=== PATIENT | female | born 1980 | race Caucasian/White ===

== ENCOUNTER 2020-02-26 18:39 | Emergency (ER) | payer SELFPAY ==
[~2020-02-26] VITALS: Ht 157.5 cm; Wt 63.5 kg
[2020-02-26 19:51] LABS: BASOPHILS # (AUTO) 0.1 (0.0-0.1); BASOPHILS % 0.4 % (0.0-1.0); EOSINOPHILS % 0.1 % (0.0-6.0); HEMATOCRIT 32.1 % (34.2-44.1); HEMOGLOBIN 10.4 g/dL (12.0-16.0); LYMPHOCYTES # (AUTO) 2.3 (1.0-3.2); LYMPHOCYTES % 6.9 % (18.0-39.1); MEAN CORPUSCULAR HEMOGLOBIN 26.4 pg (28-32); MEAN CORPUSCULAR HGB CONC 32.4 g/dL (31-35); MEAN CORPUSCULAR VOLUME 81.5 fL (81-99); MONOCYTES % 3.1 % (4.4-11.3); NEUTROPHILS # (AUTO) 28.8 (2.1-6.9); NEUTROPHILS % 86.2 % (38.7-80.0); PLATELET COUNT 416 x10e3/uL (140-360); RED BLOOD COUNT 3.94 x10e6/uL (3.6-5.1); RED CELL DISTRIBUTION WIDTH 16.7 % (11.7-14.4)
[2020-02-26 20:05] LABS: ALANINE AMINOTRANSFERASE 16 IU/L (0-55); ALBUMIN 1.8 g/dL (3.5-5.0); ALBUMIN/GLOBULIN RATIO 0.3 (0.8-2.0); ALKALINE PHOSPHATASE 207 IU/L (40-150); ANION GAP 15.8 mmol/L (8-16); BLOOD UREA NITROGEN 10 mg/dL (7-26); BUN/CREATININE RATIO 14 (6-25); CALCIUM 8.8 mg/dL (8.4-10.2); CARBON DIOXIDE 28 mmol/L (22-29); CHLORIDE 93 mmol/L (98-107); CREATININE, SERUM 0.74 mg/dL (0.57-1.11); EST GLOMERULAR FILTRATION RATE > 60 ML/MIN (60-); GLUCOSE 165 mg/dL (74-118); SODIUM 134 mmol/L (136-145)
[2020-02-26 20:09] LABS: POTASSIUM 2.8 mmol/L (3.5-5.1)
[2020-02-26] MEDS ORDERED: ONDANSETRON HCL INJ 2MG/ML 2ML 2 MG/ML VIAL ONE (23:10)
[2020-02-26] MEDS ORDERED: PIPER-TAZ 3.375 GM 50 ML ONE (23:10)
[2020-02-26] MEDS ORDERED: VANCOMYCIN 1GM/NS 250 ML 250 ML ONE (23:10)
[2020-02-26] MEDS ORDERED: VANCOMYCIN 1GM/NS 250 ML 250 ML IV ONE (23:15)
[2020-02-26] MEDS ORDERED: ACETAMINOPHEN 325 MG/10 ML UDC PO ONE (23:15)
[2020-02-26] MEDS ORDERED: PIPER-TAZ 3.375 GM 50 ML IV ONE (23:15)
--- NOTE | 2020-02-26 23:25 | Emergency Department Note ---
History of Present Illnes History of Present Illness Chief Complaint: General Medicine Complaints History of Present Illness This is a 39 year old female with c/o swelling to lower lip that started 3 days ago. states cant open mouth all the way and also with lower dental pain. denies trauma denies being allergic to anything also c/o inability to walk went to [facility] for the same complaint and given amoxicillin states its not helping and was able to walk some when she went to [facility] but now she can't walk states its a metabolism issue . Historian: Patient Arrival Mode: Car Onset (how long ago): day(s) (3) Location: lower lip Quality: swelling, pain, also trouble walking Radiation: Reports non-radiation Severity: moderate Onset quality: gradual Duration (how long): day(s) (3) Timing of current episode: constant Progression: worsening Context: Denies recent illness, Denies recent surgery Relieving factors: none Exacerbating factors: none Associated symptoms: Reports other (trouble walking) Treatments prior to arrival: other (amoxil prescribed to her at [facility]) Past Medical/Family History Physician Review I have reviewed the patient's past medical and family history. Any updates have been documented here. Past Medical History Recent Fever: No Clinical Suspicion of Infectio: No New/Unexplained Change in Ment: No Other Medical History: epilepsy pneumonia Past Surgical History: Cholecysctectomy Social History Smoking Cessation: Never Smoker Alcohol Use: None Any Illegal Drug Use: No Family History Family history of heart diseas: No Review of Systems Review of Systems Constitutional: Reports as per HPI EENTM: Reports as per HPI Cardiovascular: Reports no symptoms Respiratory: Reports no symptoms Gastrointestinal: Reports no symptoms Genitourinary: Reports no symptoms Musculoskeletal: Reports as per HPI Integumentary: Reports no symptoms Neurological: Reports no symptoms Psychological: Reports no symptoms Endocrine: Reports no symptoms Hematological/Lymphatic: Reports no symptoms Physical Exam Related Data Allergies: Coded Allergies: No Known Allergies (Unverified , 02/26/20) Triage Vital Signs Vital Signs Date Time Temp Pulse Resp B/P (MAP) Pulse Ox O2 Delivery O2 Flow Rate FiO2 02/26/20 18:50 99.5 91 18 118/71 100 Room Air Vital signs reviewed: Yes Physical Exam CONSTITUTIONAL Constitutional: Present well-developed, Present well-nourished HENT HENT: Present normocephalic, Present atraumatic, Present nose normal, Present other (swelling to lower lip and submandibular area, with tenderness, pt also with trismus) HENT L/R: Present left ext ear normal, Present right ext ear normal EYES Eyes: Reports PERRL, Reports conjunctivae normal NECK Neck: Present ROM normal PULMONARY Pulmonary: Present effort normal, Present breath sounds normal CARDIOVASCULAR Cardiovascular: Present regular rhythm, Present heart sounds normal, Present capillary refill normal, Present normal rate GASTROINTESTINAL Abdominal: Present soft, Present nontender, Present bowel sounds normal GENITOURINARY Genitourinary: Present exam deferred SKIN Skin: Present warm, Present dry MUSCULOSKELETAL Musculoskeletal: Present ROM normal NEUROLOGICAL Neurological: Present alert, Present oriented x 3, Present no gross motor or sensory deficits, Present other (dtr's normal. ) PSYCHOLOGICAL Psychological: Present mood/affect normal, Present judgement normal Results Laboratory Result Diagram: 02/26/20191402/26/201914 Laboratory Laboratory Tests Test 02/26/20 19:15 White Blood Count 33.41 x10e3/uL (4.8-10.8) Red Blood Count 3.94 x10e6/uL (3.6-5.1) Hemoglobin 10.4 g/dL (12.0-16.0) Hematocrit 32.1 % (34.2-44.1) Mean Corpuscular Volume 81.5 fL (81-99) Mean Corpuscular Hemoglobin 26.4 pg (28-32) Mean Corpuscular Hemoglobin Concent 32.4 g/dL (31-35) Red Cell Distribution Width 16.7 % (11.7-14.4) Platelet Count 416 x10e3/uL (140-360) Neutrophils (%) (Auto) 86.2 % (38.7-80.0) Lymphocytes (%) (Auto) 6.9 % (18.0-39.1) Monocytes (%) (Auto) 3.1 % (4.4-11.3) Eosinophils (%) (Auto) 0.1 % (0.0-6.0) Basophils (%) (Auto) 0.4 % (0.0-1.0) Neutrophils # (Auto) 28.8 (2.1-6.9) Lymphocytes # (Auto) 2.3 (1.0-3.2) Monocytes # (Auto) 1.0 (0.2-0.8) Eosinophils # (Auto) 0.0 (0.0-0.4) Basophils # (Auto) 0.1 (0.0-0.1) Absolute Immature Granulocyte (auto 1.11 x10e3/uL (0-0.1) Sodium Level 134 mmol/L (136-145) Potassium Level 2.8 mmol/L (3.5-5.1) Chloride Level 93 mmol/L (98-107) Carbon Dioxide Level 28 mmol/L (22-29) Anion Gap 15.8 mmol/L (8-16) Blood Urea Nitrogen 10 mg/dL (7-26) Creatinine 0.74 mg/dL (0.57-1.11) Estimat Glomerular Filtration Rate > 60 ML/MIN (60-) BUN/Creatinine Ratio 14 (6-25) Glucose Level 165 mg/dL (74-118) Calcium Level 8.8 mg/dL (8.4-10.2) Total Bilirubin 0.5 mg/dL (0.2-1.2) Aspartate Amino Transf (AST/SGOT) 29 IU/L (5-34) Alanine Aminotransferase (ALT/SGPT) 16 IU/L (0-55) Alkaline Phosphatase 207 IU/L (40-150) Total Protein 7.2 g/dL (6.5-8.1) Albumin 1.8 g/dL (3.5-5.0) Globulin 5.4 g/dL (2.3-3.5) Albumin/Globulin Ratio 0.3 (0.8-2.0) Lab results reviewed: Yes Imaging Imaging results reviewed: Yes Impressions Procedure: [id number] CT/CT SOFT TISSUE NECK W Exam Date: 02/26/20 Exam Time: 2344 REPORT STATUS: Signed History: Redness and swelling of the lower lip and under the chin with dysphagia. Rule out abscess/ Tray's angina. Comparison studies: None Technique: Axial, coronal and sagittal images from the skull base to the thoracic inlet. Coronal and sagittal images reconstructed from the axial data. Dose modulation, iterative reconstruction, and/or weight based adjustment of the mA/kV was utilized to reduce the radiation dose to as low as reasonably achievable. Intravenous contrast: 100 cc of Isovue 370. Findings: Soft tissues: Moderate subcutaneous soft tissue swelling particularly involving the lower lip, perimandibular and submental region represents cellulitis. 6 mm focal hypodensity in the anterior submental region along the buccal mandibular alveolar margin (image 40, series 600) may represent soft tissue phlegmon or evolving abscess. No discrete peripheral rim-enhancing fluid collection. Multifocal dental caries without endodontal disease, the activity of which is to be determined clinically. The airway is patent. Lymph nodes: Mildly enlarged bilateral lateral cervical lymph nodes particularly in level 2 and left level 1B, the largest in right level 2A measures approximately 2.3 cm in long axis, right level 1B measures 1.3 cm in long axis and in left level 1B measures 1.1 cm in long axis, likely reactive. Vessels: Arteries and veins are patent. Glands (thyroid, parotid and submandibular): Normal in size and symmetric. No masses. Orbits: No abnormalities. Paranasal sinuses: Moderate mucosal thickening in right sphenoid sinus. Temporal bones: No abnormalities. Skull base and facial bones: Intact. Cervical spine: Loss of normal cervical lordosis is either positional or due to muscle spasm. No significant canal or foraminal stenosis. Incidental finding: Multiple nodular airspace opacities in bilateral lung apices, the largest measures 1.7 cm in left upper lobe, may represent underlying infectious or inflammatory process. IMPRESSION: 1. Moderate soft tissue cellulitis in the lower lip, perimandibular and submental region with 6 mm soft tissue phlegmon vs evolving early abscess. 2. Multiple enlarged bilateral lateral cervical lymph nodes, likely reactive. 3. Multifocal nodular airspace opacities in bilateral lung apices may represent underlying infectious or inflammatory process in appropriate clinical setting. Signed by: Dr. Haydee Dailey M.D. on 02/27/2020 12:34 AM Dictated By: HAYDEE DAILEY MD Transcribed By: JANNY on 02/27/2033 Assessment & Plan Medical Decision Making MDM pt with swelling to lower lip and submandibular area, also c/o trouble walking for 2 weeks, cbc, cmp, ct soft tissue neck ordered to eval for electrolyte abnormality, ludwi gs angina, submandibular abscess, elevated wbc zosyn 3.375 grams iv ordered vancomycin 1 gram iv ordered pt found to have hypokalemia, ns with 20 meq kcl/liter ordered at 125 cc/hour iv PT REQUIRES ENT WILL NEED TRANSFER TO ANOTHER FACILITY NO ENT MANAGER CONTROL AT THIS FACILITY I SPOKE WITH DR PRADHAN(ENT) AT [facility], STATES PT WILL NEED ICU BED DUE TO LUDWIGS ANGINA, I SPOKE WITH DR CERVANTES(BUSINESS SERVICES DIRECTOR) AT [facility], ACCEPTS PT FOR TRANSFER. Reassessment Reassessment time: 03:19 Reassessment NO CHANGE IN AMOUNT OF SWELLING TO LOWER LIP AND SUBMANDIBULAR/SUBMENTAL AREA. I INFORMED PT OF HER TRANSFER TO [facility] Assessment & Plan Final Impression: (1) Cellulitis, lip (2) Ludwigs angina Depart Disposition: TRANS TO OTHER [facility] FACILITY Last Vital Signs Date Time Temp Pulse Resp B/P (MAP) Pulse Ox O2 Delivery O2 Flow Rate FiO2 02/26/20 23:00 100.1 87 20 121/76 100 02/26/20 18:50 Room Air Medications in the ED Ondansetron HCl 4 mg STK-MED ONCE .ROUTE ; Start 02/26/20 at 23:10; Stop 02/26/20 at 23:04; Status DC Piperacillin Sod/ Tazobactam Sod 50 ml @ ud STK-MED ONCE .ROUTE ; Start 02/26/20 at 23:10; Stop 02/26/20 at 23:04; Status DC Vancomycin HCl 250 ml @ ud STK-MED ONCE .ROUTE ; Start 02/26/20 at 23:10; Stop 02/26/20 at 23:05; Status DC Piperacillin Sod/ Tazobactam Sod 50 ml @ 50 mls/hr NOW ONCE IV Last administered on 02/26/20at 23:10; Admin Dose 50 MLS/HR; Start 02/26/20 at 23:15; Stop 02/27/20 at 00:14 Vancomycin HCl 250 ml @ 200 mls/hr NOW ONCE IV ; Start 02/26/20 at 23:15; Stop 02/27/20 at 00:29 Acetaminophen 650 mg ONCE ONCE PO Last administered on 02/26/20at 23:10; Admin Dose 650 MG; Start 02/26/20 at 23:15; Stop 02/26/20 at 23:16; Status DC Potassium Chloride/Sodium Chloride 1,000 ml @ 125 mls/hr Q8H ONCE IV ; Start 02/26/20 at 23:15; Stop 02/27/20 at 07:14 ODALYS BERGER MD Feb 26, 2020 23:25
[2020-02-26] MEDS ORDERED: IOPAMIDOL 370 MG/ML 200 ML INFUS..BTL INJ ONE (23:48)
[2020-02-26] MEDS ORDERED: SODIUM CHLORIDE 0.9% 50ML 50 ML ONE (23:49)
[2020-02-27] MEDS: KCL 20MEQ/.9 SOD CHL 1,000 ML IV ONE ×2 (00:34→01:37)
--- NOTE | 2020-02-27 00:38 | Diagnostic Imaging Report ---
History: Redness and swelling of the lower lip and under the chin with dysphagia. Rule out abscess/ Tray's angina. Comparison studies: None Technique: Axial, coronal and sagittal images from the skull base to the thoracic inlet. Coronal and sagittal images reconstructed from the axial data. Dose modulation, iterative reconstruction, and/or weight based adjustment of the mA/kV was utilized to reduce the radiation dose to as low as reasonably achievable. Intravenous contrast: 100 cc of Isovue 370. Findings: Soft tissues: Moderate subcutaneous soft tissue swelling particularly involving the lower lip, perimandibular and submental region represents cellulitis. 6 mm focal hypodensity in the anterior submental region along the buccal mandibular alveolar margin (image 40, series 600) may represent soft tissue phlegmon or evolving abscess. No discrete peripheral rim-enhancing fluid collection. Multifocal dental caries without endodontal disease, the activity of which is to be determined clinically. The airway is patent. Lymph nodes: Mildly enlarged bilateral lateral cervical lymph nodes particularly in level 2 and left level 1B, the largest in right level 2A measures approximately 2.3 cm in long axis, right level 1B measures 1.3 cm in long axis and in left level 1B measures 1.1 cm in long axis, likely reactive. Vessels: Arteries and veins are patent. Glands (thyroid, parotid and submandibular): Normal in size and symmetric. No masses. Orbits: No abnormalities. Paranasal sinuses: Moderate mucosal thickening in right sphenoid sinus. Temporal bones: No abnormalities. Skull base and facial bones: Intact. Cervical spine: Loss of normal cervical lordosis is either positional or due to muscle spasm. No significant canal or foraminal stenosis. Incidental finding: Multiple nodular airspace opacities in bilateral lung apices, the largest measures 1.7 cm in left upper lobe, may represent underlying infectious or inflammatory process. IMPRESSION: 1. Moderate soft tissue cellulitis in the lower lip, perimandibular and submental region with 6 mm soft tissue phlegmon vs evolving early abscess. 2. Multiple enlarged bilateral lateral cervical lymph nodes, likely reactive. 3. Multifocal nodular airspace opacities in bilateral lung apices may represent underlying infectious or inflammatory process in appropriate clinical setting. Signed by: Dr. Haydee Dailey M.D. on 02/27/2020 12:34 AM
[2020-02-27] MEDS ORDERED: POTASSIUM CHLORIDE 20MEQ/15ML UDC ONE (00:43)
[2020-02-27] MEDS ORDERED: POTASSIUM CHLORIDE 20MEQ/15ML UDC PO ONE (00:45)
[2020-02-27] MEDS ORDERED: ONDANSETRON HCL INJ 2MG/ML 2ML 2 MG/ML VIAL IV STA (01:31)
[2020-02-27] MEDS ORDERED: MORPHINE SULFATE INJ 4 MG/ML INJ 1ML IV STA (01:44)
--- NOTE | 2020-02-27 02:05 | NUR ---
TRANSFER INITIATED TO [facility], SPOKE TO IAM SCHMIDT
--- NOTE | 2020-02-27 04:24 | NUR ---
PT REPORT GIVEN TO IAM LIMA AT [facility].
--- NOTE | 2020-02-27 05:07 | NUR ---
[facility] ARRIVED TO ER TO TRANSPORT PT TO [facility].
== END 2020-02-27 05:24 | disposition other institution (70) ==
LOC: ER 19:21
DX: K12.2 Cellulitis and abscess of mouth (principal); G40.909 Epilepsy, unspecified, not intractable, without status epilepticus
CPT/HCPCS: 36415; 70491; 80053; 84702; 85025; 87040; 87071; 87186; 87205; 87635; 99284; J2270; J2405 ×2; J2543; J3370; Q9967